=== PATIENT | female | born 1995 | race Two or more races ===

== ENCOUNTER → 2020-08-09 | Outpatient (CLI) | payer OTHER ==
[~2020-08-09] MED LIST: GLUCOMETERDEVICE {1, null}; GLUCOSE TEST S1 EACH {1, null}; LANCETS1 EAC2 {1, null}
== END | disposition home or self-care (01) ==
LOC: PRENATAL 13:50
PROVIDERS: ATTEND Obstetrics & Gynecology Maternal & Fetal Medicine
DX: O24.312 Unspecified pre-existing diabetes mellitus in pregnancy, second trimester (principal); O36.80X1 Pregnancy with inconclusive fetal viability, fetus 1; Z36.89 Encounter for other specified antenatal screening; Z3A.14 14 weeks gestation of pregnancy

== ENCOUNTER → 2020-09-18 | Outpatient (CLI) | payer OTHER ==
[~2020-09-18] MED LIST changes: +HUMULIN N100 UNIT/2 SUBCUTANEO; +HUMULIN R100 UNIT/1 SUBCUTANEO
== END | disposition home or self-care (01) ==
LOC: PRENATAL 09:53
PROVIDERS: ATTEND Obstetrics & Gynecology Maternal & Fetal Medicine
DX: O35.0XX1 Maternal care for (suspected) central nervous system malformation in fetus, fetus 1 (principal); O35.3XX1 Maternal care for (suspected) damage to fetus from viral disease in mother, fetus 1; O98.512 Other viral diseases complicating pregnancy, second trimester; O24.312 Unspecified pre-existing diabetes mellitus in pregnancy, second trimester; Z36.89 Encounter for other specified antenatal screening; Z3A.20 20 weeks gestation of pregnancy

== ENCOUNTER 2020-10-02 15:15 | Inpatient (IN) | payer OTHER ==
[~2020-10-02] VITALS: Ht 149.9 cm
== END 2020-10-06 10:10 | disposition home or self-care (01) | DRG 998 ==
LOC: OB/GYN 15:15
PROVIDERS: ADMIT Obstetrics & Gynecology; ATTEND Obstetrics & Gynecology
DX: O24.12 Pre-existing type 2 diabetes mellitus, in childbirth (principal); E11.65 Type 2 diabetes mellitus with hyperglycemia; Z3A.22 22 weeks gestation of pregnancy; Z37.0 Single live birth
CPT/HCPCS: 240

== ENCOUNTER 2020-10-16 11:48 | Outpatient (CLI) | payer OTHER | END 2020-10-16 12:36 | disposition home or self-care (01) | LOC: PRENATAL 11:48 | PROVIDERS: ATTEND Obstetrics & Gynecology Maternal & Fetal Medicine | DX: O26.842 Uterine size-date discrepancy, second trimester (principal); O24.312 Unspecified pre-existing diabetes mellitus in pregnancy, second trimester; Z36.89 Encounter for other specified antenatal screening; Z3A.24 24 weeks gestation of pregnancy ==

== ENCOUNTER 2020-11-14 16:26 | Outpatient (CLI) | payer OTHER | END 2020-11-14 17:27 | disposition home or self-care (01) | LOC: PRENATAL 16:26 | PROVIDERS: ATTEND Obstetrics & Gynecology Maternal & Fetal Medicine | DX: O26.843 Uterine size-date discrepancy, third trimester (principal); O24.313 Unspecified pre-existing diabetes mellitus in pregnancy, third trimester; Z36.89 Encounter for other specified antenatal screening; Z3A.28 28 weeks gestation of pregnancy ==

== ENCOUNTER 2020-12-11 16:16 | Outpatient (CLI) | payer OTHER | END 2020-12-11 16:47 | disposition home or self-care (01) | LOC: PRENATAL 16:16 | PROVIDERS: ATTEND Obstetrics & Gynecology Maternal & Fetal Medicine | DX: O26.843 Uterine size-date discrepancy, third trimester (principal); O24.313 Unspecified pre-existing diabetes mellitus in pregnancy, third trimester; O36.8131 Decreased fetal movements, third trimester, fetus 1; Z36.89 Encounter for other specified antenatal screening; Z3A.31 31 weeks gestation of pregnancy ==

== ENCOUNTER 2021-01-14 14:28 | Outpatient (CLI) | payer OTHER ==
[2021-01-15] MEDS ORDERED: HUMULIN N100 UNIT/2 SUBCUTANEO ×2 (11:16→11:18)
[2021-01-15] MEDS ORDERED: HUMULIN R100 UNIT/1 SUBCUTANEO ×2 (11:17→11:25)
== END 2021-01-14 15:52 | disposition home or self-care (01) ==
LOC: PRENATAL 14:28
PROVIDERS: ATTEND Obstetrics & Gynecology Maternal & Fetal Medicine
DX: O26.843 Uterine size-date discrepancy, third trimester (principal); O24.313 Unspecified pre-existing diabetes mellitus in pregnancy, third trimester; O36.63X1 Maternal care for excessive fetal growth, third trimester, fetus 1; Z36.89 Encounter for other specified antenatal screening; Z3A.34 34 weeks gestation of pregnancy

== ENCOUNTER 2021-01-15 09:07 | Inpatient (IN) | payer OTHER ==
[~2021-01-15] VITALS: Ht 149.9 cm; Wt 2.3 kg
[2021-01-15] MEDS ORDERED: HUMULIN N100 UNIT/2 SUBCUTANEO ×2 (11:16→11:18)
[2021-01-15] MEDS ORDERED: HUMULIN R100 UNIT/1 SUBCUTANEO ×2 (11:17→11:25)
== END 2021-01-18 15:49 | disposition home or self-care (01) | DRG 786 ==
LOC: OB/GYN 09:07 → LDR 09:07 → OB/GYN 22:19
PROVIDERS: ADMIT Obstetrics & Gynecology; ATTEND Obstetrics & Gynecology
PROC: 3E033VJ Introduction of Other Hormone into Peripheral Vein, Percutaneous Approach (ICD-10-PCS; 2021-01-15)
PROC: 4A1HXFZ Monitoring of Products of Conception, Cardiac Rhythm, External Approach (ICD-10-PCS; 2021-01-15)
PROC: 10D00Z1 Extraction of Products of Conception, Low, Open Approach (ICD-10-PCS; principal; 2021-01-15 16:00)
DX: O62.2 Other uterine inertia (principal); O24.12 Pre-existing type 2 diabetes mellitus, in childbirth; O36.5930 Maternal care for other known or suspected poor fetal growth, third trimester, not applicable or unspecified; O99.824 Streptococcus B carrier state complicating childbirth; Z3A.37 37 weeks gestation of pregnancy; Z37.0 Single live birth